=== PATIENT | female | born 1980 | race Caucasian/White ===

== ENCOUNTER 2017-07-29 16:16 | Emergency (ER) | payer MEDICAID ==
--- NOTE | 2017-07-29 16:26 | EDPHY ---
H & P Time Seen by Provider: 07/29/17 16:16 HPI/ROS: CHIEF COMPLAINT: Seizure activity HISTORY OF PRESENT ILLNESS: Patient is appear visiting from home for the football game. At half-time she was standing and was seen by her to suddenly gets stiff and have full body tonic-clonic convulsions for lasted about a minute. He caught her and prevented fall or trauma. Patient does not remember any of this. She did not have anything to eat and very little to drink today prior to this event. She did used to drink alcohol heavily until 5 days ago. Current she feels pretty much back to normal except for being a little bit tired. Did not have any trauma. REVIEW OF SYSTEMS: Eye: no change in vision ENT: no sore throat Cardiac: no chest pain Pulmonary: no cough or SOB Abdomen: no vomiting, diarrhea, abdominal pain; didn't eat anything today prior to incident. Musculoskeletal: no back pain or leg swelling. Skin: no rash Neuro: no headache Constitutional: no fever : no urinary symptoms A comprehensive 10 point review of systems is otherwise negative aside from elements mentioned in the history of present illness. PAST MEDICAL HISTORY: Negative Social history: Smoker, last alcohol 5 days ago General Appearance: Alert and conversant, cooperative. Eyes: No scleral icterus. ENT, Mouth: Normal mucous membranes. No tongue laceration or abrasion. Piercing of tongue. Respiratory: Normal respiratory effort, breath sounds equal, lungs are clear to auscultation. Cardiovascular: Regular rate and rhythm. Gastrointestinal: Abdomen is soft and non tender. Neurological: Alert and oriented x3. Normally conversant. Face symmetric, normal movement and sensation in all extremities. Not tremulous or confused. Skin: Warm and dry, no rashes. Musculoskeletal: No peripheral edema and no joint swelling. No spinal tenderness. Psychiatric: Not agitated. Emergency Department course/MDM: Possibility of syncope considered, EKG performed. No food today, was standing. Could have been myoclonic jerking without incontinence or tongue laceration or prolonged postictal state. She was confused for about 10 minutes afterwards but arrived at the ED approximately 20 minutes after the incident with normal mental status about 20 minutes after the event. No chest pain or trouble breathing or leg swelling. Could also be grand mal seizure, possibly related to stopping alcohol or to other. Noncontrast head CT and Chem 7. 1724: Normal noncontrast head CT per Lazaro. 1735: Results discussed,. 40 mEq oral potassium, will follow up at home in [facility] to evaluate whether this was syncope or seizure. Also noted venous CO2 not low. Warned no driving until fully evaluated and approved by follow-up physician. Constitutional: Initial Vital Signs Temperature (C) 36.8 C 07/29/17 16:16 Heart Rate 76 07/29/17 16:16 Respiratory Rate 16 07/29/17 16:16 Blood Pressure 147/105 H 07/29/17 16:16 O2 Sat (%) 100 07/29/17 16:16 O2 Delivery Mode Room Air Allergies/Adverse Reactions: No Known Allergies Allergy (Unverified 07/29/17 16:46) Home Medications: Medication Instructions Recorded NK [No Known Home Meds] 07/29/17 Medical Decision Making - Diagnostics EKG Interpretation: 12-lead EKG interpreted by me; official reading is in trace master. My interpretation is sinus rhythm rate 70 normal intervals and no ischemic changes. Differential Diagnosis: Included but not limited to seizure, syncope, hypoglycemia, cardiac dysrhythmia , other metabolic, intracranial SAH, Pulmonary embolism. - Data Points Laboratory Results: Laboratory Results 07/29/17 16:35 07/29/17 16:35 Medications Given: Discontinued Medications Potassium Chloride (Klor-Con) 40 meq PO EDNOW ONE Stop: 07/29/17 18:03 Last Admin: 07/29/17 18:04 Dose: 40 meq Departure - Departure Disposition: Home, Routine, Self-Care Clinical Impression: Syncope Qualifiers: Syncope type: unspecified Qualified Code(s): R55 - Syncope and collapse Condition: Good Instructions: Syncope (ED) Additional Instructions: No driving until okay by follow-up physician. It is possible that you had a seizure, but I think it is less likely since you did not bite your tongue, did not have incontinence, were not confused for more than 10 minutes, normal venous bicarbonate. Please follow-up in [place] with a physician to evaluate whether this was syncope or fainting with myoclonic jerking, or actually a seizure. You may need further testing to figure this out. Referrals: Kevin Reed, DO [Medical Doctor] - As per Instructions Patient,NotPresent [Unknown] - As per Instructions (your doctor in [place], [place])
--- NOTE | 2017-07-29 16:43 | CPEKG ---
Heart Rate: 70 RR Interval: 857 P-R Interval: 136 QRSD Interval: 80 QT Interval: 440 QTC Interval: 475 P [place]: 15 QRS [place]: 85 T Wave [place]: 76 EKG Severity - NORMAL ECG - EKG Impression: SINUS RHYTHM Electronically Signed By: Yan Flores 29-Jul-2017 16:51:51
[2017-07-29 16:50] LABS: % IMMATURE GRANULYOCYTES 0.3 % (0.0-1.1); ABSOLUTE IMMATURE GRANULOCYTES 0.01 10^3/uL (0.00-0.10); ADD DIFF? NO; ADD MORPH? NO; ADD SCAN? NO; ATYPICAL LYMPHOCYTE FLAG 0 (0-99); FRAGMENT RBC FLAG 0 (0-99); HEMATOCRIT 35.8 % (38.0-47.0); LEFT SHIFT FLG 0 (0-99); LIPEMIA HEMOLYSIS FLAG 90 (0-99); MEAN CELL HEMOGLOBIN 37.7 pg (27.9-34.1); MEAN CELL HEMOGLOBIN CONCENTR. 36.3 g/dL (32.4-36.7); MEAN CELL VOLUME 103.8 fL (81.5-99.8); MEAN PLATELET VOLUME 9.6 fL (8.7-11.7); PLATELET CLUMPS FLAG 0 (0-99); PLATELET COUNT 136 10^3/uL (150-400); RED BLOOD CELL COUNT 3.45 10^6/uL (4.18-5.33); RED CELL DISTRIBUTION WIDTH 12.5 % (11.5-15.2)
[2017-07-29 17:03] LABS: ANION GAP 16 mEq/L (8-16); CALCIUM 9.6 mg/dL (8.5-10.4); CARBON DIOXIDE 25 mEq/l (22-31); CHLORIDE 99 mEq/L (97-110); CREATININE 0.7 mg/dL (0.6-1.0); GLOMERULAR FILTRATION RATE > 60; GLUCOSE 116 mg/dL (70-100); POTASSIUM 2.9 mEq/L (3.5-5.2); SODIUM 140 mEq/L (134-144)
[2017-07-29] MEDS: POTASSIUM CL 20 MEQ TAB PO ONE (18:04)
[2017-07-29 18:11] VITALS: BP 140/101; PULSE 67; RESP 18; TEMP 98.8; O2SAT 95
== END 2017-07-29 18:11 | disposition home or self-care (01) ==
DX: R55 Syncope and collapse (principal); F17.200 Nicotine dependence, unspecified, uncomplicated